=== PATIENT | male | born 1945 | race Caucasian/White ===

== ENCOUNTER → 2019-10-14 | Day surgery (SDC) | payer OTHER ==
[~2019-10-14] MED LIST: Lactated Ringers 1,000 ML IV SCH; Propofol 200 MG/20 ML SDV IV ONE
[2019-10-14 08:25] VITALS: BP 115/70; PULSE 58
--- NOTE | 2019-10-14 12:45 | OR ---
DATE OF OPERATION: 10/14/2019 PREOPERATIVE DIAGNOSIS: SCREENING COLONOSCOPY. POSTOPERATIVE DIAGNOSIS: SCREENING COLONOSCOPY. SURGEON: Raj Laguna MD PROCEDURE: FULL-LENGTH COLONOSCOPY. ANESTHESIA: MAC. COMPLICATIONS: None. SPECIMEN: None. FINDINGS: 1. Normal full-length colonoscopy. 2. [id number] sigmoid diverticulosis. RECOMMENDATIONS: Routine colonoscopy in 10 years or p.r.n. given patient's age. INDICATIONS: The patient was in to see his primary physician, Dr. Yanet Slater. It had been 12 years since his last endoscopy which was essentially normal. He was sent for a screening procedure. DESCRIPTION OF PROCEDURE: The patient was prepped and draped, placed in the left lateral decubitus position. A lubricated Olympus colonoscope was inserted and with ease advanced to the cecum. Direct visualization of the ileocecal valve and appendiceal orifice was accomplished. The bowel prep was fine. Upon withdrawal throughout the entire right transverse colon, no gross abnormalities were seen. The patient had scattered diverticula starting in the descending colon extending to the rectosigmoid junction, mild in severity. No inflammatory changes were seen. Throughout the whole length of the colon, I could find no polyps, mass, ulceration, or bleeding sites. No vascular abnormalities or signs of colitis. The rectal vault was benign. Retroflexion of the scope in the rectum showed no anal lesions. Air was suctioned, scope removed without complication. AVILA/PATTIE /[id number]
== END ==
LOC: CC.SDS 06:25
PROVIDERS: ATTEND Family Medicine
DX: Z12.11 Encounter for screening for malignant neoplasm of colon (principal); K57.30 Diverticulosis of large intestine without perforation or abscess without bleeding; E78.5 Hyperlipidemia, unspecified; M19.90 Unspecified osteoarthritis, unspecified site; F32.9 Major depressive disorder, single episode, unspecified; I10 Essential (primary) hypertension; E55.9 Vitamin D deficiency, unspecified; N40.0 Benign prostatic hyperplasia without lower urinary tract symptoms; I25.10 Atherosclerotic heart disease of native coronary artery without angina pectoris; D64.9 Anemia, unspecified; M85.80 Other specified disorders of bone density and structure, unspecified site; T84.50XD Infection and inflammatory reaction due to unspecified internal joint prosthesis, subsequent encounter; Z98.890 Other specified postprocedural states; Z79.899 Other long term (current) drug therapy; Z87.891 Personal history of nicotine dependence
CPT/HCPCS: G0121; J2704; J7120

== ENCOUNTER 2020-05-06 19:07 | Emergency (ER) | payer MEDICARE, OTHER ==
[2020-05-06 19:14] VITALS: BP 148/72; PULSE 68
[2020-05-06] MEDS: Bacitracin/Neomycin/Polymyxin B Oint 0.9 GM U/D Packet TOP PRN (20:05)
--- NOTE | 2020-05-06 20:09 | EDM.PDOC ---
ED HPI GENERAL MEDICAL PROBLEM - General Chief Complaint: Laceration Stated Complaint: laceration Time Seen by Provider: 05/06/20 19:45 Source of Information: Reports: Patient History Limitations: Reports: No Limitations - History of Present Illness INITIAL COMMENTS - FREE TEXT/NARRATIVE: Pt was working with a metal strap and slipped and cut the 4th finger on the left hand. It has 2 cm laceration at the base and a 1 cm laceration at the distal pad. Both are gapping at this time. Does have some bleeding to the proximal one that is stopped with pressure. No numbness or tingling to the tip. Tetanus is up to date. No other injury noted. Onset: Today Treatments LAUNCH MANAGER: Reports: Acetaminophen Left Finger-Ring Pain Score (Numeric/FACES): 4 - Related Data Allergies Allergy/AdvReac Type Severity Reaction Status Date / Time No Known Allergies Allergy Verified 05/06/20 19:15 Home Meds: Home Meds Aspirin [Halfprin] 81 mg PO BID 03/11/17 [History] atorvaSTATin Calcium [Atorvastatin Calcium] 20 mg PO BEDTIME 03/11/17 [History] buPROPion HCL [Wellbutrin Xl] 300 mg PO DAILY 03/11/17 [History] Chlorthalidone 25 mg PO DAILY 05/06/20 [History] Metoprolol Succinate [Toprol XL 100mg] 100 mg PO DAILY 05/06/20 [History] Potassium Chloride [K-Tab ER] 10 meq PO DAILY 05/06/20 [History] Tamsulosin HCl 0.4 mg PO DAILY 05/06/20 [History] cephALEXin [Cephalexin] 500 mg PO BID 05/06/20 [History] Past Medical History Cardiovascular History: Reports: High Cholesterol, Hypertension Other Cardiovascular History: has had SOB for months up to a year; saw Dr. Álvaro vazquez, had a stress test, was then referred to a senior sales operations analyst. Was not interested in attending cardiac rehab previously because he works and is busy at [employer]. Saw senior sales operations analyst on 06-04-17 who encouraged him to come to cardiac rehab. Since PTCA stent: currently working, right knee bothers at times, gets dizzy if he gets up fast--discussed, still has SOB almost as much as he had before his stents--told the senior sales operations analyst, Has seen Dr. Slater since his stents. History: anxiety, depression, hyperlipidemia, hypertension, sleep apnea, Genitourinary History: Reports: Prostate Disorder Other Genitourinary History: self caths at home Psychiatric History: Reports: Depression Endocrine/Metabolic History: Reports: Vitamin D Deficiency Dermatologic History: Reports: Benign Melanoma - Past Surgical History HEENT Surgical History: Reports: Eye Surgery Cardiovascular Surgical History: Reports: Coronary Artery Stent GI Surgical History: Reports: Hernia, Inguinal Musculoskeletal Surgical History: Reports: Knee Replacement, Other (See Below) Other Musculoskeletal Surgeries/Procedures:: bilateral knee replacement, toe fusion Social & Family History - Tobacco Use Smoking Status *Q: Former Smoker Used Tobacco, but Quit: Yes Month/Year Tobacco Last Used: 1980 - Caffeine Use Caffeine Use: Reports: Coffee - Recreational Drug Use Recreational Drug Use: No ED ROS GENERAL - Review of Systems Review Of Systems: See Below Constitutional: Denies: Fever, Chills Skin: Reports: Wound (4th finger left hand. See HPI) ED EXAM, SKIN/RASH Exam: See Below Exam Limited By: No Limitations General Appearance: Alert, WD/WN, No Apparent Distress Extremities: Normal Range of Motion, Normal Capillary Refill Neurological: Alert, Oriented Psychiatric: Normal Affect Skin: Warm, Dry, Intact, Wound/Incision (2 incisions as noted in the HPI.) ED SKIN PROCEDURES - Laceration/Wound Repair Left Digit - 4th (Ring) Appearance: Superficial Anesthetic Type: Digital Local Anesthesia - Lidocaine (Xylocaine): 1% Plain Local Anesthetic Volume: 4cc Exploration/Debridement/Repair: In a Bloodless Field Closed with: Sutures Lac/Wound length In cm: 2 (proximal laceration) Suture Size: 5-0 # of Sutures: 5 Suture Type: Nylon, Interrupted, Simple Left Distal Digit - 4th (Ring) Appearance: Superficial Distal NVT: Neuro & Vascular Intact Anesthetic Type: Digital Local Anesthesia - Lidocaine (Xylocaine): 1% Plain Local Anesthetic Volume: 4cc Exploration/Debridement/Repair: In a Bloodless Field Closed with: Sutures Lac/Wound length In cm: 3 Suture Size: 5-0 Suture Type: Nylon, Interrupted, Simple Course - Vital Signs Last Recorded V/S: Last Vital Signs Temp 98.6 F 05/06/20 19:07 Pulse 68 05/06/20 19:07 Resp 18 05/06/20 19:07 BP 148/72 H 05/06/20 19:07 Pulse Ox 96 05/06/20 19:07 - Orders/Labs/Meds Orders: Active Orders 24 hr Category Date Time Status Bacitracin/Neomycin/Polymyxin [Triple Antibiotic Oint] Med 05/06/20 19:49 Active 1 each TOP Q2H PRN Medication Orders Neomycin/Polymyxin/Bacitracin (Triple Antibiotic Oint) 1 each TOP Q2H PRN PRN Reason: Wound Care Last Admin: 05/06/20 20:05 Dose: 1 each Documented by: YARI Meds: Medications Generic Name Dose Route Start Last Admin Trade Name Freq PRN Reason Stop Dose Admin Neomycin/Polymyxin/Bacitracin 1 each 05/06/20 19:49 05/06/20 20:05 Triple Antibiotic Oint TOP 1 each Q2H PRN Administration Wound Care Discontinued Medications Generic Name Dose Route Start Last Admin Trade Name Freq PRN Reason Stop Dose Admin Lidocaine HCl 5 ml 05/06/20 19:46 05/06/20 20:02 Xylocaine-Mpf 1% INJECT 05/06/20 19:47 5 ml ONETIME ONE Administration Departure - Departure Time of Disposition: 20:06 Disposition: Home, Self-Care 01 Condition: Good Clinical Impression: Laceration - Discharge Information *PRESCRIPTION DRUG MONITORING PROGRAM REVIEWED*: Not Applicable *COPY OF PRESCRIPTION DRUG MONITORING REPORT IN PATIENT YAMILEX: Not Applicable Instructions: Laceration Care, Adult, [id number] Referrals: Yanet Slater MD [Primary Care Provider] - Forms: ED Department Discharge Additional Instructions: keep area clean and dry Do not soak hand. Can wash but not soak Tylenol or advil as needed for discomfort sutures out in about 10 days. Make own appt in the clinic Dressing as needed to keep clean and dry. Sepsis Event Note (ED) - Evaluation Sepsis Screening Result: No Definite Risk - Focused Exam Vital Signs: Vital Signs Temp Pulse Resp BP Pulse Ox 05/06/20 19:07 98.6 F 68 18 148/72 H 96 - Problem List & Annotations (1) Laceration SNOMED Code(s): 712675339 Code(s): [id number] - Status: Acute Priority: High Current Visit: Yes - Problem List Review Problem List Initiated/Reviewed/Updated: Yes - My Orders Last 24 Hours: My Active Orders 05/06/20 19:49 Bacitracin/Neomycin/Polymyxin [Triple Antibiotic Oint] 1 each TOP Q2H PRN - Assessment/Plan Last 24 Hours: My Active Orders 05/06/20 19:49 Bacitracin/Neomycin/Polymyxin [Triple Antibiotic Oint] 1 each TOP Q2H PRN
== END 2020-05-06 20:20 | disposition home or self-care (01) ==
LOC: CC.ED 19:07 → SUPCPDRO 19:07 → CC.ED 20:20
DX: S61.215A Laceration without foreign body of left ring finger without damage to nail, initial encounter (principal); E78.00 Pure hypercholesterolemia, unspecified; I10 Essential (primary) hypertension; F32.9 Major depressive disorder, single episode, unspecified; Z79.82 Long term (current) use of aspirin; Z79.899 Other long term (current) drug therapy; Z87.891 Personal history of nicotine dependence; W26.8XXA Contact with other sharp object(s), not elsewhere classified, initial encounter
CPT/HCPCS: 12002; 99282-25; J2001